=== PATIENT | male | born 1995 | race Hispanic/Latino ===

== ENCOUNTER 2017-02-27 21:27 | Emergency (ER) | payer BC ==
[2017-02-27 21:27] VITALS: BMI 29.2
--- NOTE | 2017-02-27 22:04 | ED PDOC ---
Arrival/HPI - General Chief Complaint: Chest Pain Time Seen by Provider: 02/27/17 21:37 Historian: Patient - History of Present Illness Narrative History of Present Illness (Text): 02/27/17 21:43 Jamie Boss is a 21 year old male who presents to the emergency department complaining of intermittent chest pain for week. Reports that pain is worsened with certain movements and breathing. Denies any fever, chills, shortness of breath, nausea, vomiting, diarrhea, back pain, urinary symptoms, or any other complaints at this time. Time/Duration: Other Symptom Onset: Gradual Symptom Course: Intermittent Severity Level: Mild Activities at Onset: Light Past Medical History - Provider Review Nursing Documentation Reviewed: Yes - Pulmonary Hx Asthma: Yes - Psychiatric Hx Depression: No Hx Emotional Abuse: No Hx Physical Abuse: No Hx Substance Use: No - Past Surgical History Past Surgical History: No Previous - Suicidal Assessment Feels Threatened In Home Enviroment: No Family/Social History - Physician Review Nursing Documentation Reviewed: Yes Family/Social History: No Known Family HX Smoking Status: no Hx Alcohol Use: No Hx Substance Use: No Allergies/Home Meds Allergies/Adverse Reactions: Allergies No Known Allergies Allergy (Verified 03/20/13 16:27) Home Medications: Home Meds Medication Instructions Recorded Confirmed No Known Home Med 02/27/17 02/27/17 Review of Systems - Physician Review All systems were reviewed & negative as marked: Yes - Review of Systems Constitutional: Normal. absent: Fatigue, Fevers Eyes: Normal Respiratory: Normal. absent: SOB, Cough, Sputum Cardiovascular: Chest Pain. absent: Palpitations Gastrointestinal: Normal. absent: Abdominal Pain, Diarrhea, Nausea, Vomiting Neurological: Normal. absent: Headache, Dizziness Physical Exam Vital Signs Reviewed: Yes Vital Signs Temp Pulse Resp BP Pulse Ox 02/27/17 21:29 97.9 F 90 16 145/62 95 Temperature: Afebrile Blood Pressure: Normal Pulse: Regular Respiratory Rate: Normal Appearance: Positive for: Well-Appearing, Non-Toxic, Comfortable Pain Distress: None Mental Status: Positive for: Alert and Oriented X 3 - Systems Exam Head: Present: Atraumatic, Normocephalic Pupils: Present: PERRL Conjunctiva: Present: Normal Mouth: Present: Moist Mucous Membranes Respiratory/Chest: Present: Clear to Auscultation, Good Air Exchange. No: Respiratory Distress, Accessory Muscle Use Cardiovascular: Present: Regular Rate and Rhythm, Normal S1, S2. No: Murmurs Abdomen: Present: Normal Bowel Sounds. No: Tenderness, Distention, Peritoneal Signs Back: Present: Normal Inspection Upper Extremity: Present: Normal Inspection. No: Cyanosis, Edema Lower Extremity: Present: Normal Inspection. No: Edema Neurological: Present: GCS=15, CN II-XII Intact, Speech Normal, Motor Func Grossly Intact, Normal Sensory Function Skin: Present: Warm, Dry, Normal Color. No: Rashes Psychiatric: Present: Alert, Oriented x 3, Normal Insight, Normal Concentration Medical Decision Making ED Course and Treatment: 02/27/17 21:45 Impression: A 21 year old male who presents to the emergency department complaining of intermittent chest pain for past week. Plan: -- EKG -- Labs, cardiac enzymes -- CXR -- Reassess and disposition Progress Notes: EKG reviewed by me: NSR @ 80 bpm. Normal axis. Normal interval. 02/27/17 23:17 CXR show no acute process. On reevaluation patient states that symptoms have resolved and is comfortable with the plan to be discharged home. Advised to present to the emergency department for new/worsening symptoms and follow up with PMD within few days. - Lab Interpretations Lab Results: 02/27/17 22:28 02/27/17 22:28 Lab Results 02/27/17 22:28: D-Dimer, Quantitative 0.19 02/27/17 22:28: Sodium 141, Potassium 4.1, Chloride 102, Carbon Dioxide 27, Anion Gap 16, BUN 20, Creatinine 1.0, Est GFR ( Amer) > 60, Est GFR (Non- Af Amer) > 60, Random Glucose 91, Calcium 9.4, Magnesium 2.0, Total Bilirubin 1.1, AST 29, ALT 49, Alkaline Phosphatase 74, Lactate Dehydrogenase 473, Total Creatine Kinase 520 H, CK-MB (CK-2) 2.4, CK-MB (CK-2) % Cancelled, Troponin I < 0.01, Total Protein 7.1, Albumin 4.3, Globulin 2.8, Albumin/Globulin Ratio 1.5 02/27/17 22:28: WBC 8.0, RBC 4.63, Hgb 14.8, Hct 42.2, MCV 91.1, MCH 32.0, MCHC 35.1, RDW 12.0, Plt Count 217, MPV 10.5, Gran % 51.6, Lymph % (Auto) 36.9 H, [place] % (Auto) 8.3 H, Eos % (Auto) 2.3, Baso % (Auto) 0.9, Gran # 4.12, Lymph # 2.9, [place] # 0.7 H, Eos # 0.2, Baso # 0.07 I have reviewed the lab results: Yes - RAD Interpretation Radiology Orders: 02/27/17 21:43 CHEST TWO VIEWS (PA/LAT) [RAD] Stat Customer Associate: ED Physician - EKG Interpretation Interpreted by ED Physician: Yes Type: 12 lead EKG - Scribe Statement The provider has reviewed the documentation as recorded by the Phong Prajapati Provider Attestation: All medical record entries made by the Clarenceibe were at my direction and personally dictated by me. I have reviewed the chart and agree that the record accurately reflects my personal performance of the history, physical exam, medical decision making, and the department course for this patient. I have also personally directed, reviewed, and agree with the discharge instructions and disposition. Disposition/Present on Arrival - Present on Arrival Any Indicators Present on Arrival: No History of DVT/PE: No History of Uncontrolled Diabetes: No Urinary Catheter: No History of Decub. Ulcer: No History Surgical Site Infection Following: None - Disposition Have Diagnosis and Disposition been Completed?: Yes Diagnosis: Chest pain Disposition: HOME/ ROUTINE Disposition Time: 23:16 Patient Problems: Current Active Problems Problem Status Onset Chest pain Acute Condition: GOOD Discharge Instructions (ExitCare): Chest Pain (ED) Referrals: Darwin Márquez MD [Primary Care Provider] - Follow up with primary Forms: [employer] (Niuean)
[2017-02-27 22:27] VITALS: TEMP 97.9
[2017-02-27 22:37] LABS: BASO # 0.07 K/mm3 (0.0-2.0); BASO % 0.9 % (0.0-3.0); EOS # 0.2 (0.0-0.7); EOS % 2.3 % (1.5-5.0); GRAN # 4.12 (1.4-6.5); GRAN % 51.6 % (50.0-68.0); HEMATOCRIT 42.2 % (42.0-52.0); LYMPH # 2.9 (1.2-3.4); LYMPH % 36.9 % (22.0-35.0); MEAN CELL VOLUME 91.1 fl (80.0-105.0); MEAN CORPUSCULAR HGB CONC 35.1 g/dl (31.0-37.0); MEAN PLATELET VOLUME 10.5 fl (7.0-11.0); MONO # 0.7 (0.1-0.6); MONO % 8.3 % (1.0-6.0)
[2017-02-27 22:50] LABS: ALB/GLOB RATIO 1.5 (1.1-1.8); ALKALINE PHOSPHATASE 74 U/L (38-126); ALT/SGPT 49 U/L (7-56); AST/SGOT 29 U/L (17-59); BILIRUBIN,TOTAL 1.1 mg/dL (0.2-1.3); BLOOD UREA NITROGEN 20 mg/dL (7-21); CALCIUM 9.4 mg/dL (8.4-10.5); CARBON DIOXIDE 27 mmol/L (21-33); CHLORIDE 102 mmol/L (98-107); GFR AFRICAN-AMERICAN > 60; GLUCOSE,RANDOM 91 mg/dL (70-110); POTASSIUM 4.1 mmol/L (3.6-5.0); SODIUM 141 mmol/L (132-148); TOTAL PROTEIN 7.1 g/dL (5.8-8.3)
[2017-02-27 23:02] LABS: TROPONIN I < 0.01 ng/mL
[2017-02-27 23:19] VITALS: BP 115/71; PULSE 80; RESP 15; O2SAT 97
--- NOTE | 2017-02-28 07:45 | RAD ---
HISTORY: cp COMPARISON: No prior. TECHNIQUE: Chest PA and lateral FINDINGS: LUNGS: No active pulmonary disease. PLEURA: No significant pleural effusion identified. No pneumothorax apparent. CARDIOVASCULAR: Normal. OSSEOUS STRUCTURES: No significant abnormalities. VISUALIZED UPPER ABDOMEN: Normal. OTHER FINDINGS: None. IMPRESSION: No active disease.
--- NOTE | 2017-03-01 00:23 | CARD ---
APPROVED REPORT EKG Measurement Heart [id number] <Conclusion> Normal sinus rhythm Normal ECG
== END 2017-02-27 23:30 | disposition home or self-care (01) ==
LOC: ED 21:27
DX: R07.9 Chest pain, unspecified (principal)

== ENCOUNTER 2018-05-06 19:02 | Emergency (ER) | payer BC ==
[2018-05-06 19:15] VITALS: BMI 27.8
[2018-05-06 19:17] VITALS: RESP 18
[2018-05-06] MEDS ORDERED: DiphenhydrAMINE 50 mg/ml Inj IVP STA (19:44)
[2018-05-06] MEDS ORDERED: Sodium Chloride 0.9% 1,000 ML IV STA (19:44)
--- NOTE | 2018-05-06 19:48 | ED PDOC ---
Arrival/HPI - General Chief Complaint: Headache Time Seen by Provider: 05/06/18 19:18 Historian: Patient - History of Present Illness Narrative History of Present Illness (Text): 05/06/18 19:45 Patient is a 22-year-old male with no significant past medical history reports 2 day history of intermittent throbbing occipital headache which started 2 days ago after he slipped and fell on wooden steps outside in the rain, he reports that he did hit the back of his head on one of the steps when the incident occurred. Reports taking [id number] pain medication without improvement. Otherwise: (-) thunderclap headache, (-) worse headache of life, (-) nausea, (-) vomiting, (-) photophobia, (-) phonophobia, (-) URI symptoms, (-) fever, (-) trauma, (-) subjective neurologic symptoms. PMD [place] Past Medical History - Pulmonary Hx Asthma: Yes - Psychiatric Hx Depression: No Hx Emotional Abuse: No Hx Physical Abuse: No Hx Substance Use: No - Past Surgical History Past Surgical History: No Previous - Suicidal Assessment Feels Threatened In Home Enviroment: No Family/Social History Family/Social History: No Known Family HX Smoking Status: Never Smoked Hx Alcohol Use: No Hx Substance Use: No Allergies/Home Meds Allergies/Adverse Reactions: Allergies No Known Allergies Allergy (Verified 03/20/13 16:27) Review of Systems - Review of Systems Constitutional: absent: Fatigue, Fevers ENT: absent: Sore Throat, Rhinorrhea, Sinus Congestion Respiratory: absent: SOB, Cough Cardiovascular: absent: Chest Pain, Palpitations Gastrointestinal: absent: Nausea, Vomiting Musculoskeletal: absent: Arthralgias, Back Pain, Neck Pain Neurological: Headache, Disequilibrium. absent: Dizziness Physical Exam Vital Signs Temp Pulse Resp BP Pulse Ox 05/06/18 19:15 98.7 F 92 H 18 118/80 100 Temperature: Afebrile Blood Pressure: Normal Pulse: Regular Respiratory Rate: Normal Appearance: Positive for: Well-Appearing, Non-Toxic, Comfortable Pain Distress: None Mental Status: Positive for: Alert and Oriented X 3 - Systems Exam Head: Present: Atraumatic, Normocephalic Pupils: Present: PERRL Extroacular Muscles: Present: EOMI Conjunctiva: Present: Normal Mouth: Present: Moist Mucous Membranes Neck: Present: Normal Range of Motion. No: Meningeal Signs, MIDLINE TENDERNESS, Paraspinal Tenderness, Lymphadenopathy Respiratory/Chest: Present: Clear to Auscultation, Good Air Exchange. No: Respiratory Distress, Accessory Muscle Use Cardiovascular: Present: Regular Rate and Rhythm, Normal S1, S2. No: Murmurs Abdomen: No: Tenderness, Distention, Peritoneal Signs Back: Present: Normal Inspection. No: Midline Tenderness, Paraspinal Tenderness Upper Extremity: Present: Normal Inspection. No: Cyanosis, Edema Lower Extremity: Present: Normal Inspection. No: Edema Neurological: Present: GCS=15, CN II-XII Intact, Speech Normal, Motor Func Grossly Intact, Normal Sensory Function, Gait Normal Skin: Present: Warm, Dry, Normal Color. No: Rashes Psychiatric: Present: Alert, Oriented x 3, Normal Insight, Normal Concentration Medical Decision Making ED Course and Treatment: 05/06/18 19:47 Plan : - CT head - IV - NS bolus IV - Reglan IV and benadryl IV CT head : IMPRESSION: No acute intracranial abnormality. On reevaluation, patient reports headache is somewhat improving. On exam, patient remains awake alert and oriented 3 in no acute distress. Neck is supple, repeat neuro exam shows no focal findings. Given tylenol po. CT head results d/w the patient. Advised to follow up with primary care physician and neuro referral in 1-2 days without fail. Advised to take medication as prescribed. Return to the emergency room at any time for any new or worsening symptoms. Patient states he fully agrees with and understands discharge instructions. States that he agrees with the plan and disposition. Verbalized and repeated discharge instructions and plan. I have given the patient opportunity to ask any additional questions. - RAD Interpretation Radiology Orders: 05/06/18 19:44 HEAD W/O CONTRAST [CT] Stat - PA / FIRE CODE INSPECTOR / Resident Statement MD/DO has reviewed & agrees with the documentation as recorded. Disposition/Present on Arrival - Present on Arrival Any Indicators Present on Arrival: No History of DVT/PE: No History of Uncontrolled Diabetes: No Urinary Catheter: No History of Decub. Ulcer: No History Surgical Site Infection Following: None - Disposition Have Diagnosis and Disposition been Completed?: Yes Diagnosis: Headache, Head injury Disposition: HOME/ ROUTINE Disposition Time: 20:45 Patient Plan: Discharge Condition: STABLE Discharge Instructions (ExitCare): Closed Head Injury (DC) Additional Instructions: Thank you for letting us take care of you today. You were treated for headache, head injury. The emergency medical care you received today was directed at your acute symptoms. If you were prescribed any medication, please fill it and take as directed. It may take several days for your symptoms to resolve. Return to the Emergency Department if your symptoms worsen, do not improve, or if you have any other problems. Please contact your doctor in 2 days for re-evaluation and follow up / or call one of the physicians/clinics you have been referred to that are listed on the Patient Visit Information form that is included in your discharge packet. Bring any paperwork you were given at discharge with you along with any medications you are taking to your follow up visit. Our treatment cannot replace ongoing medical care by a primary care provider (PCP) outside of the emergency department. Thank you for allowing the [facility] team to be part of your care today. Your CT head results: IMPRESSION: No acute intracranial abnormality. Regarding your CT scan: A Radiologist will review the ED reading if any change in treatment is needed we will contact you. Prescriptions: Metoclopramide HCl [Reglan] 10 mg PO QID PRN #20 tablet PRN Reason: Headache Referrals: Darwin Márquez MD [Primary Care Provider] - Follow up with primary Kevin Perez MD [Staff Provider] - Follow up with primary Forms: [employer] (Wolof), WORK NOTE
[2018-05-06 20:41] VITALS: BP 119/70; PULSE 74; TEMP 98.2; O2SAT 98
--- NOTE | 2018-05-07 08:26 | CT ---
Date of service: 05/06/2018 PROCEDURE: CT HEAD WITHOUT CONTRAST. HISTORY: headache COMPARISON: None available. TECHNIQUE: Axial computed tomography images were obtained through the head/brain without intravenous contrast. Radiation dose: Total exam DLP = 871.87 mGy-cm. This CT exam was performed using one or more of the following dose reduction techniques: Automated exposure control, adjustment of the mA and/or kV according to patient size, and/or use of iterative reconstruction technique. FINDINGS: HEMORRHAGE: No intracranial hemorrhage. BRAIN: No mass effect or edema. No atrophy or chronic microvascular ischemic changes. VENTRICLES: Unremarkable. No hydrocephalus. CALVARIUM: Unremarkable. PARANASAL SINUSES: Unremarkable as visualized. No significant inflammatory changes. MASTOID AIR CELLS: Unremarkable as visualized. No inflammatory changes. OTHER FINDINGS: None. IMPRESSION: Normal CT of the Head.
== END 2018-05-06 21:22 | disposition home or self-care (01) ==
LOC: ED 19:02
DX: S09.90XA Unspecified injury of head, initial encounter (principal); W10.9XXA Fall (on) (from) unspecified stairs and steps, initial encounter; Y92.89 Other specified places as the place of occurrence of the external cause
CPT/HCPCS: 70450; 96361; 96374; 96375; 99285; J1200; J2765; J7030

== ENCOUNTER 2018-11-11 14:43 | Emergency (ER) | payer BC ==
[2018-11-11 14:50] VITALS: TEMP 97.6; BMI 30.9
[2018-11-11] MEDS ORDERED: Sodium Chloride 0.9% 1,000 ML IV STA (15:07)
[2018-11-11] MEDS ORDERED: DiphenhydrAMINE 50 mg/ml Inj IVP STA (15:07)
--- NOTE | 2018-11-11 15:13 | ED PDOC ---
Arrival/HPI - General Chief Complaint: Headache Time Seen by Provider: 11/11/18 14:46 Historian: Patient - History of Present Illness Narrative History of Present Illness (Text): 11/11/18 15:09 A 22 year old male with no significant past medical history, presents to the ED complaining of a headache for the past 4 hours. Patient describes headache as migraine-like and feels like "squeezing." Patient mentions headache starts on the right side of his head then radiates to back of head and behind his eyes. Patient notes associated sensitivity to light and loud sounds, and vomiting three times today. Patient denies any fevers, chills, dizziness, chest pain, shortness of breath, dyspnea on exertion, cough, abdominal pain, nausea, diarrhea, back pain, neck pain, urinary/bowel changes, or any other complaints. PMD: Dr. Márquez Time/Duration: 4-6 hours Symptom Onset: Gradual Symptom Course: Unchanged Activities at Onset: Light Context: Home Past Medical History - Provider Review Nursing Documentation Reviewed: Yes - Pulmonary Hx Asthma: Yes - Psychiatric Hx Depression: No Hx Emotional Abuse: No Hx Physical Abuse: No Hx Substance Use: No - Past Surgical History Past Surgical History: No Previous - Suicidal Assessment Feels Threatened In Home Enviroment: No Family/Social History - Physician Review Nursing Documentation Reviewed: Yes Family/Social History: No Known Family HX Smoking Status: Never Smoked Hx Alcohol Use: No Hx Substance Use: No Allergies/Home Meds Allergies/Adverse Reactions: Allergies No Known Allergies Allergy (Verified 03/20/13 16:27) Review of Systems - Review of Systems Constitutional: absent: Fevers Neurological: absent: Dizziness Physical Exam - Physical Exam Narrative Physical Exam (Text): 11/11/18 15:16 Constitutional: No acute distress. Head: Normocephalic. Atraumatic. Eyes: PERRL. No injection. ENT: Moist mucous membranes. Neck: Supple. No rigidity. Cardiovascular: Regular rate. Chest: No tenderness. Respiratory: Clear to auscultation bilaterally. GI: Soft. Nontender. Nondistended. Back: No CVA tenderness. Musculoskeletal: No tenderness or swelling of extremities. Skin: No rash. Neurologic: Alert, no focal deficit. CN II to XII intact. Motor 5/5 x 4. Sensation to light touch intact bilaterally. Nose to finger normal. Heel to orellana normal. Vital Signs Reviewed: Yes Vital Signs Temp Pulse Resp BP Pulse Ox 11/11/18 14:49 97.6 F 100 H 16 132/81 98 Temperature: Afebrile Blood Pressure: Normal Pulse: Tachycardic Respiratory Rate: Normal Appearance: Positive for: Well-Appearing, Non-Toxic Pain Distress: Mild Mental Status: Positive for: Alert and Oriented X 3 Medical Decision Making ED Course and Treatment: 11/11/18 15:19 Impression: A 22 year old male who presents to the ED complaining of a headache. Differential Diagnosis included but are not limited to: Migraine Plan: -- Labs -- Tylenol -- Benadryl -- Toradol -- Reglan -- IV Fluids -- Reassess and disposition Prior Visits: Notes and results from previous visits were reviewed. Patient was last seen in the emergency department on 05/06/18. Feels better after treatment. Advised f/u neurology. Instructed to return to Emergency department for worsening pain, fever, stiff neck, vomiting, neuro deficit, or any other problem. - Medication Orders Current Medication Orders: Acetaminophen (Tylenol 325mg Tab) 975 mg PO STAT STA Stop: 11/11/18 15:08 Diphenhydramine HCl (Benadryl) 50 mg IVP STAT STA Stop: 11/11/18 15:08 Sodium Chloride (Sodium Chloride 0.9%) 1,000 mls @ 999 mls/hr IV .Q1H1M STA Stop: 11/11/18 16:07 Ketorolac Tromethamine (Toradol) 30 mg IVP STAT STA Stop: 11/11/18 15:08 Metoclopramide HCl (Reglan) 10 mg IVP STAT STA Stop: 11/11/18 15:08 - Scribe Statement The provider has reviewed the documentation as recorded by the Phong Gaitan Provider Scribe Attestation: All medical record entries made by the Scribe were at my direction and personally dictated by me. I have reviewed the chart and agree that the record accurately reflects my personal performance of the history, physical exam, medical decision making, and the department course for this patient. I have also personally directed, reviewed, and agree with the discharge instructions and disposition. Disposition/Present on Arrival - Present on Arrival Any Indicators Present on Arrival: No History of DVT/PE: No History of Uncontrolled Diabetes: No Urinary Catheter: No History of Decub. Ulcer: No History Surgical Site Infection Following: None - Disposition Have Diagnosis and Disposition been Completed?: Yes Diagnosis: Headache Disposition: HOME/ ROUTINE Disposition Time: 16:43 Patient Plan: Discharge Condition: GOOD Discharge Instructions (ExitCare): Headache, Adult Referrals: Keyla Keyes MD [Staff Provider] - Follow up with primary Forms: [employer] (Armenian)
[2018-11-11 15:40] LABS: BASO # 0.04 K/mm3 (0.0-2.0); BASO % 0.4 % (0.0-3.0); EOS # 0.1 (0.0-0.7); EOS % 0.5 % (1.5-5.0); HEMOGLOBIN 17.4 g/dL (14.0-18.0); LYMPH # 0.9 (1.2-3.4); LYMPH % 8.9 % (22.0-35.0); MEAN CELL VOLUME 92.2 fl (80.0-105.0); MEAN CORPUSCULAR HEMOGLOBIN 31.6 pg (25.0-35.0); MEAN CORPUSCULAR HGB CONC 34.3 g/dl (31.0-37.0); MEAN PLATELET VOLUME 10.7 fl (7.0-11.0); MONO # 0.3 (0.1-0.6); MONO % 2.8 % (1.0-6.0); RBC 5.51 10^6/uL (3.5-6.1); RED CELL DISTRIBUTION WIDTH 12.1 % (11.5-14.5); WHITE BLOOD COUNT 10.5 10^3/uL (4.5-11.0)
[2018-11-11 15:48] LABS: ALB/GLOB RATIO 1.4 (1.1-1.8); ALBUMIN 4.7 g/dL (3.0-4.8); ALT/SGPT 49 U/L (7-56); AST/SGOT 27 U/L (17-59); BLOOD UREA NITROGEN 16 mg/dL (7-21); CALCIUM 9.5 mg/dL (8.4-10.5); GFR NON-AFRICAN AMERICAN > 60
[2018-11-11 16:19] VITALS: BP 114/58; PULSE 66; RESP 18; O2SAT 99
== END 2018-11-11 16:56 | disposition home or self-care (01) ==
LOC: ED 14:43
DX: R51 Headache (principal)
CPT/HCPCS: 80053; 85025; 96374; 96375; 99285; J1200; J1885; J2765; J7030

== ENCOUNTER 2018-11-17 12:21 | Emergency (ER) | payer BC ==
[2018-11-17 12:22] VITALS: BMI 30.9
[2018-11-17 12:36] VITALS: TEMP 99.2
--- NOTE | 2018-11-17 12:52 | ED PDOC ---
Arrival/HPI - General Chief Complaint: ENT Problem Time Seen by Provider: 11/17/18 12:23 Historian: Patient - History of Present Illness Narrative History of Present Illness (Text): 11/17/18 12:50 A 23 year old male, whose past medical history includes asthmatic bronchitis post nasal drip, presents to the emergency department complaining of left sided face swelling since earlier this morning. Patient reports he woke up today with swelling to his left face with an associated burning sensation. Patient states he was hiking yesterday and found a tick under his right arm. Per patient, his father was able to remove the tick's entire body. Patient notes he is currently experiencing residual symptoms of a cold to which he was treated for recently in the emergency room. Patient notes his hearing to his right ear is muffled. P atient denies any fever, chills, shortness of breath, chest pain, diarrhea, nausea, vomiting, urinary symptoms, back pain, neck pain, headache, dizziness, or any other complaints. PMD: Dr. Márquez Time/Duration: 4-6 hours Symptom Onset: Sudden Symptom Course: Unchanged Activities at Onset: Significant Context: Other (hiking) Past Medical History - Provider Review Nursing Documentation Reviewed: Yes - Infectious Disease Hx of Infectious Diseases: None - Pulmonary Hx Asthma: Yes - Psychiatric Hx Depression: No Hx Emotional Abuse: No Hx Physical Abuse: No Hx Substance Use: No - Past Surgical History Past Surgical History: No Previous - Anesthesia Hx Anesthesia: No - Suicidal Assessment Feels Threatened In Home Enviroment: No Family/Social History - Physician Review Nursing Documentation Reviewed: Yes Family/Social History: No Known Family HX Smoking Status: Never Smoked Hx Alcohol Use: No Hx Substance Use: No Allergies/Home Meds Allergies/Adverse Reactions: Allergies No Known Allergies Allergy (Verified 03/20/13 16:27) Review of Systems - Physician Review All systems were reviewed & negative as marked: Yes - Review of Systems Constitutional: absent: Fevers, Other (chills) ENT: Other (right ear sounds are muffled) Respiratory: absent: SOB Cardiovascular: absent: Chest Pain Gastrointestinal: absent: Diarrhea, Nausea, Vomiting Genitourinary Male: absent: Urinary Output Changes Musculoskeletal: absent: Back Pain, Neck Pain Skin: Other (left sided facial swelling) Neurological: absent: Headache, Dizziness Physical Exam Vital Signs Reviewed: Yes Vital Signs Temp Pulse Resp BP Pulse Ox 11/17/18 12:32 99.2 F 112 H 20 120/78 99 Temperature: Afebrile Blood Pressure: Normal Pulse: Tachycardic Respiratory Rate: Normal Appearance: Positive for: Non-Toxic Pain Distress: Moderate Mental Status: Positive for: Alert and Oriented X 3 - Systems Exam Head: Present: Atraumatic, Normocephalic, Tenderness (tender submandibular lymph node to left side of face, angular to the jaw ) Pupils: Present: PERRL Extroacular Muscles: Present: EOMI Conjunctiva: Present: Normal Ears: Present: Other (TM is injected) Respiratory/Chest: Present: Clear to Auscultation, Good Air Exchange. No: Respiratory Distress, Accessory Muscle Use Cardiovascular: Present: Regular Rate and Rhythm, Normal S1, S2. No: Murmurs Upper Extremity: Present: Normal Inspection. No: Cyanosis, Edema Lower Extremity: Present: Normal Inspection. No: Edema Neurological: Present: GCS=15, CN II-XII Intact, Speech Normal Skin: Present: Warm, Dry, Normal Color. No: Rashes Psychiatric: Present: Alert, Oriented x 3, Normal Insight, Normal Concentration Medical Decision Making ED Course and Treatment: 11/17/18 12:54 Impression: 23 year old presents to the emergency department complaining of left sided face swelling. Plan: -- Doryx -- Lyme IGG -- Lyme IGM -- Reassess and disposition Prior Visits: Notes and results from previous visits were reviewed. Progress Notes: 11/17/18 13:15 Patient supplied a picture of the tick that he removed. It appears the tick is not engorged and does not appear a deer tick. Will send prophylax for lyme disease and will send lyme tighters for PMD follow up. - Scribe Statement The provider has reviewed the documentation as recorded by the Scribraymond Chung All medical record entries made by the Scribe were at my direction and personally dictated by me. I have reviewed the chart and agree that the record accurately reflects my personal performance of the history, physical exam, medical decision making, and the department course for this patient. I have also personally directed, reviewed, and agree with the discharge instructions and disposition. Disposition/Present on Arrival - Present on Arrival Any Indicators Present on Arrival: No History of DVT/PE: No History of Uncontrolled Diabetes: No Urinary Catheter: No History of Decub. Ulcer: No History Surgical Site Infection Following: None - Disposition Have Diagnosis and Disposition been Completed?: Yes Diagnosis: Ear infection, Tick bite Disposition: HOME/ ROUTINE Disposition Time: 12:55 Condition: GOOD Discharge Instructions (ExitCare): Ear Infections (Otitis Media) (DC) Additional Instructions: FRED CASILLAS, thank you for letting us take care of you today. The emergency medical care you received today was directed at your acute symptoms. If you were prescribed any medication, please fill it and take as directed. It may take several days for your symptoms to resolve. Return to the Emergency Department if your symptoms worsen, do not improve, or if you have any other problems. Please contact your doctor or call one of the physicians/clinics you have been referred to that are listed on the Patient Visit Information form that is included in your discharge packet. Bring any paperwork you were given at discharge with you along with any medications you are taking to your follow up visit. Our treatment cannot replace ongoing medical care by a primary care provider outside of the emergency department. Thank you for allowing the [facility] team to be part of your care today. Follow up with Dr. Márquez early next week for review of the blood work done in the ED. Prescriptions: Amoxicillin 875 mg PO BID #14 tablet Ibuprofen [Motrin] 600 mg PO Q6 PRN #20 tab PRN Reason: Pain, Moderate (4-7) Referrals: Darwin Márquez MD [Staff Provider] - Follow up with primary Forms: [employer] ([place])
[2018-11-17 13:25] VITALS: BP 122/72; PULSE 99; RESP 15; O2SAT 97
[2018-11-21 21:07] LABS: LYME IGM NEGATIVE (NEGATIVE)
[2018-11-21 21:13] LABS: LYME IGG NEGATIVE (NEGATIVE)
== END 2018-11-17 13:26 | disposition home or self-care (01) ==
LOC: ED 12:21
DX: H66.90 Otitis media, unspecified, unspecified ear (principal); S40.861A Insect bite (nonvenomous) of right upper arm, initial encounter; W57.XXXA Bitten or stung by nonvenomous insect and other nonvenomous arthropods, initial encounter